=== PATIENT | female | born 1985 | race Caucasian/White ===

== ENCOUNTER 2017-07-16 10:55 | Emergency (ER) | payer OTHER ==
[~2017-07-16] VITALS: Ht 170.2 cm; Wt 58.5 kg
[2017-07-16 11:05] VITALS: BP 115/63
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
[2017-07-16] MEDS ORDERED: CYCL10TA2 PO (12:29)
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
== END 2017-07-16 12:55 | disposition home or self-care (01) ==
LOC: ER 10:55
DX: S16.1XXA Strain of muscle, fascia and tendon at neck level, initial encounter (principal); M54.5 Low back pain; V89.2XXA Person injured in unspecified motor-vehicle accident, traffic, initial encounter; Y93.89 Activity, other specified; Y99.8 Other external cause status; Y92.89 Other specified places as the place of occurrence of the external cause
CPT/HCPCS: 72125; 72131; 99284-25

== ENCOUNTER 2020-12-24 19:11 | Emergency (ER) | payer SELFPAY ==
[~2020-12-24] VITALS: Ht 172.7 cm; Wt 59.0 kg
[~2020-12-24 19:11] MED LIST: CYCL10TA2 PO
[2020-12-24] MEDS ORDERED: HYDROcodone/APAP 5/325MG 1 TAB TABLET PO ONE (19:30)
--- NOTE | 2020-12-24 19:48 | PHYS DOC ---
Past Medical History Past Medical History: No Pertinent History Past Surgical History: Cholecystectomy, Tubal ligation Smoking Status: Current Some Day Smoker Alcohol Use: None Drug Use: None General Adult EDM: Chief Complaint: BACK PAIN OR INJURY HPI: HPI: Patient is a 35 year old female who presents with headache and back pain for the last couple of days. Patient states that she has not actually been feeling the best the last 6 days. Patient states she had a temperature of 102 today. She states she took ibuprofen at 11:00 this morning. She states that is all across her low back is an aching type pain. Patient denies nausea, vomiting, abdominal pain, headache, dizziness, chest pain, shortness of breath, cough, fever, vision changes, numbness or tingling. Patient rates her pain a 7 out of 10. Patient states she has been able to eat and drink and keep it down. Past medical history is cholecystectomy and tubal ligation. Review of Systems: Review of Systems: Constitutional: + fever or chills. [] Eyes: Denies change in visual acuity. [] HENT: Denies nasal congestion or sore throat. [] Respiratory: Denies cough or shortness of breath. [] Cardiovascular: Denies chest pain or edema. [] GI: Denies abdominal pain, nausea, vomiting, bloody stools or diarrhea. [] : Denies dysuria. [] Musculoskeletal: + Bilateral lower back pain or denies joint pain. [] Integument: Denies rash. [] Neurologic: + headache, denies focal weakness or sensory changes. [] Endocrine: Denies polyuria or polydipsia. [] Lymphatic: Denies swollen glands. [] Psychiatric: Denies depression or anxiety. [] Heart Score: Risk Factors: Risk Factors: DM, Current or recent (<one month) smoker, HTN, HLP, family history of CAD, obesity. Risk Scores: Score 0 - 3: 2.5% MACE over next 6 weeks - Discharge Home Score 4 - 6: 20.3% MACE over next 6 weeks - Admit for Clinical Observation Score 7 - 10: 72.7% MACE over next 6 weeks - Early Invasive Strategies Current Medications: Current Medications Medications (Trade) Dose Ordered Sig/Renetta Start Time Stop Time Status Last Admin Dose Admin Acetaminophen/ Hydrocodone Bitart (Lortab 5/325) 1 tab 1X ONCE 12/24/20 19:30 12/24/20 19:31 DC Allergies: Allergies: Allergies Coded Allergies Type Severity Reaction Last Updated Verified No Known Drug Allergies 07/16/17 No Physical Exam: PE: Constitutional: Well developed, well nourished, no acute distress, non-toxic appearance. [] HENT: Normocephalic, atraumatic, bilateral external ears normal, oropharynx moist, no oral exudates, nose normal. [] Eyes: PERRLA, EOMI, conjunctiva normal, no discharge. [] Neck: Normal range of motion, no tenderness, supple, no stridor. [] Cardiovascular:Heart rate tachy regular rhythm, no murmur [] Lungs & Thorax: Bilateral breath sounds clear to auscultation [] Abdomen: Bowel sounds normal, soft, no tenderness, no masses, no pulsatile masses. [] Skin: Warm, dry, no erythema, no rash. [] Back: No tenderness, left CVA tenderness. [] Extremities: No tenderness, no cyanosis, no clubbing, ROM intact, no edema. [] Neurologic: Alert and oriented X 3, normal motor function, normal sensory function, no focal deficits noted. [] Psychologic: Affect normal, judgement normal, mood normal. [] EKG: EKG: [] Radiology/Procedures: Radiology/Procedures: [] Impression: [facility] [address] [place] [address] IMAGING REPORT Signed PATIENT: JAVON PARKER ACCOUNT: [id number] : 1985 LOCATION: ER AGE: 35 SEX: F EXAM STATUS: PRE ER ORD. PHYSICIAN: LISBETH ADAIR APRN REASON: FEVER PROCEDURE: PORTABLE CHEST 1V XR CHEST 1V Clinical History: Reason: FEVER / Spl. Instructions: / History: Technique: AP view of the chest was obtained at 12/24/2020 7:28 PM. Comparison: None. Findings: The cardiomediastinal silhouette is normal. The pulmonary vasculature is normal. The lungs and pleural margins are clear. Impression: No evidence of an acute cardiopulmonary process. Electronically signed by: Olamide Bartlett III, MD (12/24/2020 8:29 PM) [facility] DICTATED and SIGNED BY: OLAMIDE BARTLETT III, MD DATE: 12/24/[id number] 0 Course & Med Decision Making: Course & Med Decision Making Pertinent Labs and Imaging studies reviewed. (See chart for details) COVID-19 CRITERIA: The patient was evaluated during the global COVID-19 pandemic, and that diagnosis was suspected/considered upon their initial presentation. Their evaluation, treatment and testing was consistent with current guidelines for patients who present with complaints or symptoms that may be related to COVID-19. See HPI. Rate is at 102. Temperature in the ED is 99.2. There is left-sided CVA tenderness. Abdomen is soft and nontender. Skin pink warm and dry. Speaks in full clear sentences. Ambulatory with a steady gait. No loss of bowel or bladder and there is no saddle paresthesia. No sciatica symptoms. Lungs are clear to auscultation all lobes. Chest x-ray shows no acute findings. Blood work is unremarkable. Patient has received fluids. She is also tested for Covid. Urinalysis shows positive for methamphetamines. [] Dragon Disclaimer: Dragon Disclaimer: This electronic medical record was generated, in whole or in part, using a voice recognition dictation system. COVID-19 Patient Risks: Age 65 or older: No Sign of co-morbidity: No Exp to person + for COVID: No Exp to PUI: No Travel from affected area: No Lower respiratory symptoms: No Fever: Yes Other: Yes (BACK PAIN, HEADACHE) PPE Use: Full PPE with N95 mask or PAPR: Yes Departure Departure Impression: Primary Impression: Headache Qualified Codes: R51.9 - Headache, unspecified Additional Impressions: Back pain Qualified Codes: M54.5 - Low back pain Methamphetamine abuse Disposition: 01 DC HOME SELF CARE/HOMELESS Condition: STABLE Referrals: JOELLEN PERES (PCP) Patient Instructions: Back Pain in , General Headache Without Cause, Substance Abuse-Brief Additional Instructions: Follow-up with primary care provider. Drink plenty of fluids. Stop doing methamphetamines. Return for severe chest pain or shortness of breath or worst headache of your life. Scripts Ibuprofen (IBUPROFEN) 600 Mg Tablet 600 MG PO PRN Q6HRS PRN for INFLAMMATION, #24 TAB Prov: LISBETH ADAIR [employer]ELCHAIR 12/24/20 LISBETH ADAIR APRN Dec 24, 2020 19:48
[2020-12-24 19:50] LABS: BILIRUBIN,URINE NEGATIVE (NEG); CLARITY,URINE CLEAR; COLOR,URINE YELLOW; NITRITE,URINE NEGATIVE (NEG); PROTEIN,URINE 30 mg/dL (NEG-TRACE)
[2020-12-24 20:00] LABS: BACTERIA,URINE FEW /HPF (0-FEW)
[2020-12-24] MEDS ORDERED: IV NORMAL SALINE 1000ML BAG 1,000 ML IV ONE (20:00)
[2020-12-24 20:30] LABS: BASO # 0.1 x10^3/uL (0.0-0.2); BASO % 1 % (0-3); EOS % 0 % (0-3); HEMATOCRIT 37.4 % (36.0-47.0); HEMOGLOBIN 12.5 g/dL (12.0-15.5); LYMPH % 10 % (24-48); MEAN CORPUSCULAR HEMOGLOBIN 29 pg (25-35); MEAN CORPUSCULAR HGB CONC 34 g/dL (31-37); MEAN CORPUSCULAR VOLUME 87 fL (79-100); MONO % 10 % (0-9); NEUT # 8.1 x10^3/uL (1.8-7.7); NEUT % 79 % (31-73); PLATELET COUNT 199 x10^3/uL (140-400); RED BLOOD COUNT 4.33 x10^6/uL (3.50-5.40); RED CELL DISTRIBUTION WIDTH 14.2 % (11.5-14.5); WHITE BLOOD COUNT 10.2 x10^3/uL (4.0-11.0)
--- NOTE | 2020-12-24 20:31 | RAD ---
XR CHEST 1V Clinical History: Reason: FEVER / Spl. Instructions: / History: Technique: AP view of the chest was obtained at 12/24/2020 7:28 PM. Comparison: None. Findings: The cardiomediastinal silhouette is normal. The pulmonary vasculature is normal. The lungs and pleura l margins are clear. Impression: No evidence of an acute cardiopulmonary process. Electronically signed by: Tom Ugarte III, MD (12/24/2020 8:29 PM) [facility]
[2020-12-24 20:37] LABS: CALCIUM 8.7 mg/dL (8.5-10.1); GFR 63.5; POTASSIUM 4.1 mmol/L (3.5-5.1)
[2020-12-24 20:49] LABS: AMPHETAMINE/METHAMPHETAMINE POS (NEG); BARBITURATES NEG (NEG); BENZODIAZEPINES NEG (NEG); CANNABINOIDS NEG (NEG); COCAINE NEG (NEG); METHADONE NEG (NEG); OPIATES NEG (NEG); PHENCYCLIDINE NEG (NEG)
[2020-12-24 20:51] LABS: ALBUMIN 3.3 g/dL (3.4-5.0); ALBUMIN/GLOBULIN RATIO 0.9 (1.0-1.7); TOTAL BILIRUBIN 0.6 mg/dL (0.2-1.0); TOTAL PROTEIN 7.1 g/dL (6.4-8.2)
[2020-12-24] MEDS ORDERED: IBUP-1007 PO (21:04)
[2020-12-24 21:13] VITALS: BP 117/59
--- NOTE | 2020-12-26 15:23 | NUR ---
IP: Informed pt of negative COVID test. Pt verbalized understanding but states is felling worse. She wanted the results of other tests ran. I referred her to the ED.
== END 2020-12-24 22:15 | disposition home or self-care (01) ==
LOC: ER 19:11
DX: R51.9 Headache, unspecified (principal); M54.5 Low back pain; F15.10 Other stimulant abuse, uncomplicated; Z90.89 Acquired absence of other organs; Z98.51 Tubal ligation status; Z87.891 Personal history of nicotine dependence; Z20.822 Contact with and (suspected) exposure to COVID-19
CPT/HCPCS: 36415; 71045; 80053; 80307; 81001; 81025; 85025; 87077; 87086; 87186; 96360; 99285; C9803; J7030; U0003